=== PATIENT | male | born 1985 | race Caucasian/White ===

== ENCOUNTER 2016-03-23 20:04 | Emergency (ER) | payer MEDICAID ==
[2016-03-23 20:16] VITALS: TEMP 97.2
[2016-03-23] MEDS ORDERED: ONDANSETRON 4 MG/2 ML VIAL IVP ONE (20:34)
[2016-03-23] MEDS ORDERED: NS 1,000 ML IV ONE ×2 (20:34)
[2016-03-23] MEDS ORDERED: methylPREDNISolone SOD SUCC 125 MG/2 ML VIAL IVP ONE (20:34)
[2016-03-23] MEDS ORDERED: HYDROmorphONE/DILAUDID 1 MG/ML SYR IVP ONE ×3 (20:34→22:00)
--- NOTE | 2016-03-23 20:38 | EDPHY ---
H & P Stated Complaint: back pain, chrons flair up Time Seen by Provider: 03/23/16 20:28 HPI/ROS: CHIEF COMPLAINT: Abdominal and back pain HISTORY OF PRESENT ILLNESS: The patient is a 31-year-old man with a history of Crohn's disease who comes to the emergency department complaining of chronic abdominal and back pain. currently the symptoms have been present for about 2 months. He states that this is characteristic of his Crohn's flare. He is usually treated at [place] at [facility] but recently moved to call [facility]. He takes Remicade and his last dose was in December. He takes it every other month. He also had been on prednisone 40 mg a day but ran out 2 days ago. He has not had a fever. He states that it feels like he is pooping razor blades. he has not had a fever. He states that this is typical of his Crohn's flares. He had a CT scan done lose her hospital recently that He reports was negative other than mild inflammation. Classifies his pain is severe. REVIEW OF SYSTEMS: Constitutional: denies: chills, fever, recent illness, recent injury EENTM: denies: blurred vision, double vision, nose congestion Respiratory: denies: cough, shortness of breath Cardiac: denies: chest pain, irregular heart rate, lightheadedness, palpitations Gastrointestinal/Abdominal: See HPI Genitourinary: denies: dysuria, frequency, hematuria, pain Musculoskeletal: denies: joint pain, muscle pain Skin: denies: lesions, rash, jaundice, bruising Neurological: denies: headache, numbness, paresthesia, tingling, dizziness, weakness Hematologic/Lymphatic: denies: blood clots, easy bleeding, easy bruising Immunologic/allergic: denies: HIV/AIDS, transplant EXAM: GENERAL: Well-appearing, well-nourished and in no acute distress. HEAD: Atraumatic, normocephalic. EYES: Pupils equal round and reactive to light, extraocular movements intact, sclera anicteric, conjunctiva are normal. ENT: TMs normal, nares patent, oropharynx clear without exudates. Moist mucous membranes. NECK: Normal range of motion, supple without lymphadenopathy or JVD. LUNGS: Breath sounds clear to auscultation bilaterally and equal. No wheezes rales or rhonchi. HEART: Regular rate and rhythm without murmurs, rubs or gallops. ABDOMEN: Soft, nontender, normoactive bowel sounds. No guarding, no rebound. No masses appreciated. BACK: No CVA tenderness, no spinal tenderness, step-offs or deformities EXTREMITIES: Normal range of motion, no pitting or edema. No clubbing or cyanosis. NEUROLOGICAL: Cranial nerves II through XII grossly intact. Normal speech, normal gait. 5/5 strength, normal movement in all extremities, normal sensation PSYCH: Normal mood, normal affect. SKIN: Warm, dry, normal turgor, no visible rashes or lesions. Source: Patient Exam Limitations: No limitations - Personal History Current Tetanus Diphtheria and Acellular Pertussis (TDAP): Yes - Medical/Surgical History Hx Asthma: Yes Hx Chronic Respiratory Disease: No Hx Diabetes: No Hx Cardiac Disease: No Hx Renal Disease: No Hx Cirrhosis: No Hx Alcoholism: No Hx Splenectomy or Spleen Trauma: No Other PMH: chrons, asthma - Family History Significant Family History: No pertinent family hx - Social History Smoking Status: Heavy smoker Alcohol Use: Sober Drug Use: None Constitutional: Initial Vital Signs Temperature (C) 36.2 C 03/23/16 20:13 Heart Rate 76 03/23/16 20:13 Respiratory Rate 20 03/23/16 20:13 Blood Pressure 112/87 H 03/23/16 20:13 O2 Sat (%) 100 03/23/16 20:13 O2 Delivery Mode Room Air Allergies/Adverse Reactions: cefaclor [From Ceclor] Allergy (Verified 03/23/16 20:12) tramadol Allergy (Verified 03/23/16 20:12) Home Medications: Medication Instructions Recorded Remicade Inj 100 mg (*) 03/23/16 oxyCODONE/APAP 5/325 [Percocet 1 - 2 tab PO Q4-6PRN PRN #14 tab 03/23/16 5/325 (RX)] predniSONE 60 mg PO DAILY #15 tab 03/23/16 Medical Decision Making ED Course/Re-evaluation: 10:00 p.m. the patient is feeling much better. He is asking for 1 more dose of Dilaudid before he goes. I will also treat him with Toradol. I will refill his prednisone prescription and have him follow up with [facility]. He does mom understand and agree with this plan. They declined further workup or testing. We discussed indications for returning. Differential Diagnosis: Partial list of the Differential diagnosis considered include but were not limited to; Crohn's flare, gastritis, appendicitis, diverticulitis, biliary disease and although unlikely based on the history and physical exam, I also considered perforation, obstruction, ischemia. I discussed these differential diagnoses and the plan with the patient as well as the usual and expected course. The patient understands that the diagnosis is provisional and that in medicine we are not always correct and that further workup is often warranted. Usual and customary warnings were given. All of the patient's questions were answered. The patient was instructed to return to the emergency department should the symptoms at all worsen or return, otherwise to followup with the physician as we discussed. - Data Points Medications Given: Discontinued Medications Hydromorphone HCl (Dilaudid) 1 mg IVP EDNOW ONE Stop: 03/23/16 20:35 Last Admin: 03/23/16 20:51 Dose: 1 mg Hydromorphone HCl (Dilaudid) 1 mg IVP EDNOW ONE Stop: 03/23/16 21:41 Last Admin: 03/23/16 21:42 Dose: 1 mg Hydromorphone HCl (Dilaudid) 1 mg IVP EDNOW ONE Stop: 03/23/16 22:01 Last Admin: 03/23/16 22:00 Dose: 1 mg Sodium Chloride (Ns) 1,000 mls @ 0 mls/hr IV ONCE ONE PRN Reason: Wide Open Stop: 03/23/16 20:35 Last Admin: 03/23/16 20:40 Dose: 1,000 mls Sodium Chloride (Ns) 1,000 mls @ 0 mls/hr IV ONCE ONE PRN Reason: Wide Open Stop: 03/23/16 20:35 Last Admin: 03/23/16 21:40 Dose: 1,000 mls Ketorolac Tromethamine (Toradol) 30 mg IVP EDNOW ONE Stop: 03/23/16 22:01 Last Admin: 03/23/16 22:00 Dose: 30 mg Methylprednisolone Sodium Succinate (Solu-Medrol) 125 mg IVP EDNOW ONE Stop: 03/23/16 20:35 Last Admin: 03/23/16 20:51 Dose: 125 mg Ondansetron HCl (Zofran) 4 mg IVP EDNOW ONE Stop: 03/23/16 20:35 Last Admin: 03/23/16 20:51 Dose: 4 mg Departure - Departure Disposition: Home, Routine, Self-Care Clinical Impression: Crohns disease Qualifiers: Qualifier Code: (K50.819) Crohn's disease of both small and large intestine with unspecified complications Condition: Fair Instructions: Crohn Disease (ED) Referrals: Mello Spears MD [Medical Doctor] - As per Instructions [facility] [Provider Group] - As per Instructions Prescriptions: oxyCODONE/APAP 5/325 [Percocet 5/325 (RX)] 1 - 2 tab PO Q4-6PRN PRN #14 tab PRN Reason: Pain predniSONE 60 mg PO DAILY #15 tab
[2016-03-23] MEDS ORDERED: HYDROmorphONE/DILAUDID 1 MG/ML SYR ONE (21:34)
[2016-03-23 21:42] VITALS: RESP 16
[2016-03-23] MEDS ORDERED: KETOROLAC 30 MG/1 ML SDV ONE (21:53)
[2016-03-23] MEDS ORDERED: KETOROLAC 30 MG/1 ML SDV IVP ONE (22:00)
[2016-03-23 22:35] VITALS: BP 117/69; PULSE 68; O2SAT 97
== END 2016-03-23 22:34 | disposition home or self-care (01) ==
DX: K50.819 Crohn's disease of both small and large intestine with unspecified complications (principal); J45.909 Unspecified asthma, uncomplicated; F17.200 Nicotine dependence, unspecified, uncomplicated
CPT/HCPCS: 96374; J1170; J1885; J2405

== ENCOUNTER 2016-03-25 05:53 | Emergency (ER) | payer MEDICAID ==
[2016-03-25 06:02] VITALS: TEMP 97.5
[2016-03-25] MEDS ORDERED: ONDANSETRON 4 MG/2 ML VIAL IVP ONE (06:14)
[2016-03-25] MEDS ORDERED: HYDROmorphONE/DILAUDID 1 MG/ML SYR IVP ONE (06:14)
[2016-03-25] MEDS ORDERED: NS 1,000 ML IV ONE (06:14)
--- NOTE | 2016-03-25 06:18 | EDPHY ---
HPI/HX/ROS/PE/MDM Narrative: Chief complaint: Left flank pain HPI: 31-year-old male with a history of Crohn's disease presenting with left flank pain which is similar to prior episodes that he has been told were flares of his Crohn's disease. Patient was seen here Thursday night for the same. Patient received IV Dilaudid, antiemetics and fluids at that time. His symptoms had resolved. He was discharged home with prescriptions for steroids and for Percocet. Mother states that when they tried to get the Percocet filled they were told they were unable to fill until the 29 of March because of prior prescriptions. Patient is describing pain in his left back which is worsened by movement, improved by remaining still. He has had no nausea vomiting. No diarrhea. No fevers or chills. He is ambulating with discomfort but is able to walk. No new numbness or weakness in the lower extremities. There has been some question as to the etiology of this pain in the past. He is currently under the care of [facility] but is transitioning his care to [facility]. Patient states that when he was seen here Thursday evening he felt improved. He has been taking the steroids that he was given at that time. ROS: 10 point Review of Systems is negative except as noted in the HPI. Physical exam: Gen: Awake, Alert, uncomfortable appearing HEENT: Nose: no rhinorrhea Eyes: PERRLA, EOMI Mouth: Moist mucosa Neck: Supple, no JVD Chest: nontender, lungs clear to auscultation Heart: S1, S2 normal, no murmur Abd: Soft, non-tender, no guarding, no acute surgical findings Back: no CVA tenderness, no midline tenderness, he has palpable muscle spasm in the left paraspinal muscles. Palpation of his back reproduces his presenting complaint. Ext: no edema, non-tender Skin: no rash Neuro: CN II-XII intact, Sensation grossly intact, Strength 5/5 in bilateral upper and lower extremities. Toes are downgoing. He has 2+ patellar reflexes bilaterally. (Joaquim Brand) ED Course: 31-year-old male presenting with what he is calling a Crohn's flare, however his abdominal exam is completely benign. His abdomen is soft. There is no tenderness, there is no guarding. He does have left back pain, the palpation which reproduces his presenting complaint. Symptoms will more likely to be secondary to musculoskeletal problem rather than intra-abdominal problem. Will recheck blood work here. Will give him IV analgesics and reassess. [address] Mclaughlin pending lab tests and pain control. (Joaquim Brand) MDM: Turned over to me at change of shift. He was here yesterday also. Both prior physicians have decided he does not require any abdominal scanning since he has had numerous abdominal CT scans and he has a benign soft belly. I talked to Dr. Joaquim Brand; specifically about imaging. I am awaiting chemistries and will discharge the patient with additional pain med since the pharmacies will not fill his pain meds. 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 (Renny Mclaughlin) - Data Points Laboratory Results: Laboratory Results 03/25/16 06:15 03/25/16 06:15 WBC 9.74 H 10^3/uL (3.80-9.50) RBC 4.40 10^6/uL (4.40-6.38) Hgb 14.0 g/dL (13.7-17.5) Hct 41.5 % (40.0-51.0) MCV 94.3 fL (81.5-99.8) MCH 31.8 pg (27.9-34.1) MCHC 33.7 g/dL (32.4-36.7) RDW 14.0 % (11.5-15.2) Plt Count 418 H 10^3/uL (150-400) MPV 8.5 L fL (8.7-11.7) Neut % (Auto) 70.6 % (39.3-74.2) Lymph % (Auto) 20.8 % (15.0-45.0) [place] % (Auto) 6.8 % (4.5-13.0) Eos % (Auto) 0.4 L % (0.6-7.6) Baso % (Auto) 0.3 % (0.3-1.7) Nucleat RBC Rel Count 0.0 % (0.0-0.2) Absolute Neuts (auto) 6.87 H 10^3/uL (1.70-6.50) Absolute Lymphs (auto) 2.03 10^3/uL (1.00-3.00) Absolute Monos (auto) 0.66 10^3/uL (0.30-0.80) Absolute Eos (auto) 0.04 10^3/uL (0.03-0.40) Absolute Basos (auto) 0.03 10^3/uL (0.02-0.10) Absolute Nucleated RBC 0.00 10^3/uL (0-0.01) Immature Gran % 1.1 % (0.0-1.1) Immature Gran # 0.11 H 10^3/uL (0.00-0.10) Sodium Pending Potassium Pending Chloride Pending Carbon Dioxide Pending Anion Gap Pending BUN Pending Creatinine Pending Estimated GFR Pending Glucose Pending Calcium Pending Total Bilirubin Pending Conjugated Bilirubin Pending Unconjugated Bilirubin Pending AST Pending ALT Pending Alkaline Phosphatase Pending Total Protein Pending Albumin Pending Lipase Pending Medications Given: Discontinued Medications Hydromorphone HCl (Dilaudid) 1 mg IVP EDNOW ONE Stop: 03/25/16 06:15 Last Admin: 03/25/16 06:25 Dose: 1 mg Sodium Chloride (Ns) 1,000 mls @ 0 mls/hr IV ONCE ONE PRN Reason: Wide Open Stop: 03/25/16 06:15 Last Admin: 03/25/16 06:25 Dose: 1,000 mls Ondansetron HCl (Zofran) 4 mg IVP EDNOW ONE Stop: 03/25/16 06:15 Last Admin: 03/25/16 06:26 Dose: 4 mg General Time Seen by Provider: 03/25/16 06:08 Initial Vital Signs: Initial Vital Signs Temperature (C) 36.4 C 03/25/16 06:00 Heart Rate 72 03/25/16 06:00 Respiratory Rate 20 03/25/16 06:00 Blood Pressure 118/87 H 03/25/16 06:00 O2 Sat (%) 100 03/25/16 06:00 O2 Delivery Mode Room Air Allergies/Adverse Reactions: cefaclor [From [facility]] Allergy (Verified 03/25/16 05:59) tramadol Allergy (Verified 03/25/16 05:59) Home Medications: Medication Instructions Recorded Remicade Inj 100 mg (*) 03/23/16 oxyCODONE/APAP 5/325 [Percocet 1 - 2 tab PO Q4-6PRN PRN #14 tab 03/23/16 5/325 (RX)] predniSONE 60 mg PO DAILY #15 tab 03/23/16 Ventolin Hfa Inhaler 03/25/16 Departure - Departure Disposition: Home, Routine, Self-Care Clinical Impression: Back pain, Crohns disease Condition: Good Instructions: Back Pain (ED) Referrals: NONE *PRIMARY CARE P,. [Primary Care Provider] - As per Instructions
[2016-03-25 06:20] LABS: % IMMATURE GRANULYOCYTES 1.1 % (0.0-1.1); ABSOLUTE IMMATURE GRANULOCYTES 0.11 10^3/uL (0.00-0.10); ADD DIFF? NO; ADD MORPH? NO; ADD SCAN? NO; ATYPICAL LYMPHOCYTE FLAG 10 (0-99); FRAGMENT RBC FLAG 0 (0-99); HEMATOCRIT 41.5 % (40.0-51.0); LEFT SHIFT FLG 10 (0-99); LIPEMIA HEMOLYSIS FLAG 80 (0-99); MEAN CELL HEMOGLOBIN 31.8 pg (27.9-34.1); MEAN CELL HEMOGLOBIN CONCENTR. 33.7 g/dL (32.4-36.7); MEAN CELL VOLUME 94.3 fL (81.5-99.8); MEAN PLATELET VOLUME 8.5 fL (8.7-11.7); PLATELET CLUMPS FLAG 0 (0-99); PLATELET COUNT 418 10^3/uL (150-400)
[2016-03-25] MEDS ORDERED: KETOROLAC 30 MG/1 ML SDV ONE (06:50)
[2016-03-25 06:51] LABS: ALANINE AMINOTRANSFERASE 22 IU/L (21-72); ALKALINE PHOSPHATASE 55 IU/L (38-126); ANION GAP 10 mEq/L (8-16); ASPARTATE AMINOTRANSFERASE 9 IU/L (17-59); BILIRUBIN,TOTAL 0.8 mg/dL (0.1-1.4); BILIRUBIN-CONJUGATED 0.5 mg/dL (0.0-0.5); BILIRUBIN-UNCONJUGATED 0.3 mg/dL (0.0-1.1); CALCIUM 9.6 mg/dL (8.5-10.4); CARBON DIOXIDE 20 mEq/l (22-31); CHLORIDE 114 mEq/L (97-110); CREATININE 0.9 mg/dL (0.7-1.3); GLOMERULAR FILTRATION RATE > 60; GLUCOSE 83 mg/dL (70-100); POTASSIUM 3.9 mEq/L (3.5-5.2); SODIUM 144 mEq/L (134-144); TOTAL PROTEIN 7.1 g/dL (6.3-8.2)
[2016-03-25] MEDS ORDERED: KETOROLAC 30 MG/1 ML SDV IVP ONE (06:51)
[2016-03-25] MEDS ORDERED: OXYCODONE/APAP 5/325MG PREPACK#4 BTL TAKEHOME ONE (07:02)
[2016-03-25 07:59] VITALS: BP 119/45; PULSE 75; RESP 16; O2SAT 98
== END 2016-03-25 07:59 | disposition home or self-care (01) ==
DX: M54.5 Low back pain (principal); K50.90 Crohn's disease, unspecified, without complications
CPT/HCPCS: 96374; J1170; J1885; J2405